=== PATIENT | male | born 1985 | race Caucasian/White ===

== ENCOUNTER 2025-01-31 13:59 | Emergency (ER) | payer SELFPAY ==
[2025-01-31 14:36] LABS: #Basophils 0.04 10x3/uL (0.0-0.2); #Eosinophils Less than 0.03 10x3/uL (0.0-0.7); #Monocytes 1.37 10x3/uL (0.11-0.59); #Neutrophils 10.98 10x3/uL (1.40-6.50); %Basophils 0.3 % (0.0-1.0); %Eosinophils 0.1 % (0.0-10.0); %Lymphocytes 15.5 % (21.0-51.0); %Monocytes 9.3 % (0.0-10.0); %Neutrophils 74.3 % (42.0-75.0); Hematocrit 44.2 % (42.0-52.0); Hemoglobin 14.8 g/dL (14.0-18.0); Mean Corpuscular Hemoglobin 28.1 pg (27.0-31.0); Mean Corpuscular Volume 84.0 fL (78.0-98.0); Platelet Count 272 10x3/uL (130-400); Red Blood Cell (RBC) Count 5.26 mill/uL (4.70-6.10); White Blood Cell (WBC) Count 14.77 10x3/uL (4.8-10.8)
[2025-01-31 14:53] LABS: ALT (SGPT) 33 U/L (Less than 45); AST (SGOT) 34 U/L (11-34); Albumin 4.5 g/dL (3.1-4.5); Alkaline Phosphatase 94 U/L (40-110); Anion Gap 22 mmol/L (10-20); BUN (Urea Nitrogen) 14 mg/dL (8.9-20.6); Bilirubin, Total 0.7 mg/dL (0.3-1.2); CK (CPK) 321 U/L (30-200); Calc. Creatinine Clearance 0 mL/min (70-130); Calcium 10.1 mg/dL (7.8-10.44); Carbon Dioxide 14 mmol/L (22-29); Chloride 103 mmol/L (98-107); Globulin 3.5 g/dL (2.4-3.5); Glucose 82 mg/dL (70-105); Potassium 2.9 mmol/L (3.5-5.1); Sodium 136 mmol/L (136-145)
[2025-01-31 17:08] LABS: Anion Gap 13 mmol/L (10-20); BUN (Urea Nitrogen) 12 mg/dL (8.9-20.6); Calc. Creatinine Clearance 0 mL/min (70-130); Calcium 8.7 mg/dL (7.8-10.44); Carbon Dioxide 21 mmol/L (22-29); Chloride 107 mmol/L (98-107); Glucose 79 mg/dL (70-105); Potassium 3.1 mmol/L (3.5-5.1); Sodium 138 mmol/L (136-145)
== END 2025-01-31 18:59 | disposition home or self-care (01) ==
LOC: ERS 13:59 → EDBD 13:59 → ERS 18:59
DX: N17.9 Acute kidney failure, unspecified (principal); F17.290 Nicotine dependence, other tobacco product, uncomplicated; Z75.8 Other problems related to medical facilities and other health care
CPT/HCPCS: 36415; 36416; 80053; 82550; 85025; 93005; 96360; 96361